=== PATIENT | male | born 1960 | race Caucasian/White ===

== ENCOUNTER 2017-09-08 09:01 | Emergency (ER) | payer MEDICAID ==
[~2017-09-08] VITALS: Ht 167.6 cm; Wt 62.1 kg
[2017-09-08 10:02] LABS: microscopic required? NO
[2017-09-08 10:18] LABS: BASOPHIL % 0.4 % (0-2); PLATELET COUNT 264 x10^3mcL (130-400); RED CELL DISTRIBUTION WIDTH 13.4 % (11.5-14.5)
[2017-09-08 10:19] LABS: urine erythrocyte NEGATIVE (NEGATIVE)
[2017-09-08 10:36] LABS: ALBUMIN 3.8 g/dL (3.4-5.0); ALKALINE PHOSPHATASE 50 U/L (46-116); ALT/SGPT 44 U/L (16-63); AMYLASE 52 U/L (25-115); AST/SGOT 23 U/L (15-37); BILIRUBIN TOTAL 0.5 mg/dL (0.20-1.00); CALCIUM 8.5 mg/dL (8.5-10.1); CARBON DIOXIDE 33.4 mmol/L (21-32); CHLORIDE SERUM 102 mmol/L (98-107); CREATININE SERUM 0.9 mg/dL (0.7-1.3); GFR1 > 60 mL/min; GLUCOSE SERUM 117 mg/dL (74-106); LIPASE 186 IU/L (73-393); POTASSIUM SERUM 5.5 mmol/L (3.5-5.1); SODIUM SERUM 135 mmol/L (136-145); TOTAL PROTEIN, SERUM 7.5 g/dL (6.4-8.2)
[2017-09-08 13:18] VITALS: BP 112/75
== END 2017-09-08 13:00 | disposition home or self-care (01) ==
LOC: ED 09:01
PROVIDERS: Emergency Medicine
DX: K57.30 Diverticulosis of large intestine without perforation or abscess without bleeding (principal); E11.9 Type 2 diabetes mellitus without complications; I10 Essential (primary) hypertension; E78.00 Pure hypercholesterolemia, unspecified; E66.01 Morbid (severe) obesity due to excess calories
CPT/HCPCS: 83880; J1885; J7030; Q0092

== ENCOUNTER 2017-09-18 13:05 | Emergency (ER) | payer MEDICAID ==
[~2017-09-18] VITALS: Ht 165.1 cm; Wt 106.1 kg
[2017-09-18 13:14] VITALS: Ht 165.1 cm; Wt 106.1 kg
[2017-09-18 15:15] VITALS: BP 128/65
== END 2017-09-18 15:15 | disposition home or self-care (01) ==
LOC: ED 13:05
DX: M54.5 Low back pain (principal); I10 Essential (primary) hypertension; E11.9 Type 2 diabetes mellitus without complications
CPT/HCPCS: J1885

== ENCOUNTER 2017-09-29 22:50 | Emergency (ER) | payer MEDICAID ==
[~2017-09-29] VITALS: Ht 170.2 cm; Wt 106.1 kg
[2017-09-29 23:13] VITALS: Ht 170.2 cm; Wt 106.1 kg
[2017-09-30 04:31] VITALS: BP 145/84
== END 2017-09-30 04:31 | disposition home or self-care (01) ==
LOC: ED 22:50
DX: G89.29 Other chronic pain (principal); M54.5 Low back pain; E11.9 Type 2 diabetes mellitus without complications; I10 Essential (primary) hypertension
CPT/HCPCS: J2270

== ENCOUNTER 2018-02-01 08:31 | Emergency (ER) | payer MEDICAID ==
[~2018-02-01] VITALS: Ht 172.7 cm; Wt 108.1 kg
[2018-02-01 11:04] LABS: microscopic required? NO
[2018-02-01 11:06] LABS: BASOPHIL % 0.5 % (0-2); PLATELET COUNT 232 x10^3mcL (130-400)
[2018-02-01 11:16] LABS: urine erythrocyte NEGATIVE (NEGATIVE)
[2018-02-01 11:17] LABS: CALCIUM 8.2 mg/dL (8.5-10.1); CARBON DIOXIDE 28.4 mmol/L (21-32); CHLORIDE SERUM 103 mmol/L (98-107); CREATININE SERUM 0.9 mg/dL (0.7-1.3); GFR1 > 60 mL/min; GLUCOSE SERUM 119 mg/dL (74-106); POTASSIUM SERUM 4.3 mmol/L (3.5-5.1); SODIUM SERUM 136 mmol/L (136-145)
[2018-02-01 11:21] LABS: ALBUMIN 3.8 g/dL (3.4-5.0); ALKALINE PHOSPHATASE 60 U/L (46-116); ALT/SGPT 44 U/L (16-63); AST/SGOT 23 U/L (15-37); BILIRUBIN TOTAL 0.51 mg/dL (0.20-1.00); TOTAL PROTEIN, SERUM 7.6 g/dL (6.4-8.2)
[2018-02-01 12:00] VITALS: BP 122/61
== END 2018-02-01 12:00 | disposition home or self-care (01) ==
LOC: ED 08:31
PROVIDERS: Emergency Medicine
DX: R33.9 Retention of urine, unspecified (principal); I10 Essential (primary) hypertension; E11.9 Type 2 diabetes mellitus without complications
CPT/HCPCS: 36415

== ENCOUNTER 2019-04-06 16:49 | Emergency (ER) | payer OTHER ==
[~2019-04-06] VITALS: Ht 170.2 cm; Wt 109.3 kg
[2019-04-06 16:57] VITALS: Ht 170.2 cm; Wt 109.3 kg
[2019-04-06 18:55] VITALS: BP 127/90
== END 2019-04-06 18:55 | disposition home or self-care (01) ==
LOC: ED 16:49
DX: S50.02XA Contusion of left elbow, initial encounter (principal); I10 Essential (primary) hypertension; E11.9 Type 2 diabetes mellitus without complications; W11.XXXA Fall on and from ladder, initial encounter; Y93.89 Activity, other specified; Y92.89 Other specified places as the place of occurrence of the external cause; Y99.8 Other external cause status

== ENCOUNTER 2019-04-10 08:50 | Emergency (ER) | payer OTHER ==
[~2019-04-10] VITALS: Ht 167.6 cm; Wt 109.3 kg
[2019-04-10 09:26] VITALS: Ht 167.6 cm; Wt 109.3 kg
[2019-04-10 10:57] VITALS: BP 140/89
== END 2019-04-10 10:57 | disposition home or self-care (01) ==
LOC: ED 08:50
DX: M25.522 Pain in left elbow (principal); R22.32 Localized swelling, mass and lump, left upper limb; I10 Essential (primary) hypertension; E11.9 Type 2 diabetes mellitus without complications; W11.XXXA Fall on and from ladder, initial encounter; Y93.89 Activity, other specified; Y92.89 Other specified places as the place of occurrence of the external cause; Y99.8 Other external cause status

== ENCOUNTER 2019-06-01 09:19 | Emergency (ER) | payer OTHER ==
[~2019-06-01] VITALS: Ht 165.1 cm; Wt 109.8 kg
[2019-06-01 10:15] VITALS: Ht 165.1 cm; Wt 109.8 kg
[2019-06-01 14:21] VITALS: BP 128/89
== END 2019-06-01 14:21 | disposition home or self-care (01) ==
LOC: ED 09:19
DX: S53.402A Unspecified sprain of left elbow, initial encounter (principal); I10 Essential (primary) hypertension; E11.9 Type 2 diabetes mellitus without complications; W11.XXXA Fall on and from ladder, initial encounter; Y93.89 Activity, other specified; Y92.89 Other specified places as the place of occurrence of the external cause; Y99.8 Other external cause status

== ENCOUNTER 2019-06-23 14:02 | Inpatient (IN) | payer OTHER ==
[~2019-06-23] VITALS: Ht 165.1 cm; Wt 112.0 kg
[2019-06-23 14:08] VITALS: Ht 165.1 cm; Wt 112.0 kg
--- NOTE | 2019-06-23 14:49 | NUR ---
PT A/O X4. RESP E/U. PT CC: CP X4 DAY. SOB SINCE TODAY. STATES IT DOES NOT RADIATE. DENIES N/V. AT BEDSIDE. 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 ALL NEEDS MET AT THIS TIME.
[2019-06-23 15:16] LABS: BASOPHIL % 0.6 % (0-2); PLATELET COUNT 236 x10^3mcL (130-400); RED CELL DISTRIBUTION WIDTH 12.4 % (11.5-14.5)
[2019-06-23 15:38] LABS: CALCIUM 8.4 mg/dL (8.5-10.1); CARBON DIOXIDE 28.5 mmol/L (21-32); CHLORIDE SERUM 103 mmol/L (98-107); CREATININE SERUM 0.8 mg/dL (0.7-1.3); GFR1 > 60 mL/min; GLUCOSE SERUM 154 mg/dL (74-106); POTASSIUM SERUM 4.4 mmol/L (3.5-5.1); SODIUM SERUM 139 mmol/L (136-145)
[2019-06-23 15:43] LABS: ALBUMIN 4.1 g/dL (3.4-5.0); ALKALINE PHOSPHATASE 56 U/L (46-116); ALT/SGPT 49 U/L (16-63); AST/SGOT 20 U/L (15-37); BILIRUBIN TOTAL 0.2 mg/dL (0.20-1.00); TOTAL PROTEIN, SERUM 7.5 g/dL (6.4-8.2)
--- NOTE | 2019-06-23 15:44 | NUR ---
PT RESTING IN BED. C/O BACK PAIN 12/31. MEDICATED C MORPHINE 4MG IVP. TOLERATED WELL. WILL CONT TO MONITOR.
--- NOTE | 2019-06-23 16:21 | NUR ---
PT RESTING IN BED COMFORTABLY C AT BEDSIDE. STATES NO MORE CP AND FEELS MUCH BETTER. ALL NEEDS MET AT THIS TIME. WILL CONT TO MONITOR.
[2019-06-23] MEDS ORDERED: FORTAMET500 M1 PO (17:45)
[2019-06-23] MEDS ORDERED: COZAAR50 M1 PO (17:45)
[2019-06-23] MEDS ORDERED: TAMSULOSIN HCL0.4 MG PO (17:45)
[2019-06-23] MEDS ORDERED: SIMVASTATIN5 M2 PO ×2 (17:45→17:46)
--- NOTE | 2019-06-23 17:47 | NUR ---
PT SITTING COMFORTABLY IN GURNEY, AWAKE AND ALERT, MAKING JOKES, RESP E/U, DENIES PAIN. SPOUSE AT BEDSIDE. NAD NOTED.
--- NOTE | 2019-06-23 19:25 | NUR ---
ATTEMPTED TO CALL REPORT TO MED SURG, UNABLE TO TAKE REPORT AT THIS TIME.
--- NOTE | 2019-06-23 19:41 | NUR ---
PT REPORT CALLED TO RADHA POE TO ASSUME PT CARE.
--- NOTE | 2019-06-23 19:48 | NUR ---
PT TRANSFERRED TO [facility] BY [facility] BY MYSELF AND [facility] EMT. PT ON FULL CM FOR TRANSPORT. PT AOX4, RESP EVEN AND UNLABORED, NO ACUTE DISTRESS NOTED. PT ACCEPTED BY JUN POE TO ASSUME PT CARE. PT AMBULATED FROM [facility] TO BED WITHOUT INCIDENT.
[2019-06-23 20:01] VITALS: BP 144/91
--- NOTE | 2019-06-23 20:16 | NUR ---
RECEIVED PT FROM ER. PT ADMIT FOR CHEST PAIN, PT IS A/O X4, VERBAL RESPONSIVE. LUNG SOUND CLEAR BILATERAL,NO COUGH, NO SOB. PT IS ON TELE 5, NSR, DENY ANY CHEST PAIN OR DISCOMFORT, BOWEL SOUND PRESENT ALL 4 QUADRANTS, NO DISTENTION, NO TENDER. PEDAL PULSE PRESENT BOTH FEET, NO EDEMA, IV AT LAC. ALL ADLS ASSIST, ALL NEED MET, CALL LIGHT IN REACH, WILL CONTINUE TO MONITOR.
--- NOTE | 2019-06-24 01:40 | NUR ---
Pt. resting at this time. Denies pain. No respiratory distress. Will cont.to monitor.
--- NOTE | 2019-06-24 04:03 | NUR ---
Afebrile. No significant change in condition noted. Denies chest pain or discomfort. In no apparent distress.
[2019-06-24 05:15] VITALS: BP 126/79
[2019-06-24 07:05] LABS: BASOPHIL % 0.4 % (0-2); PLATELET COUNT 221 x10^3mcL (130-400); RED CELL DISTRIBUTION WIDTH 12.6 % (11.5-14.5)
[2019-06-24 07:30] LABS: CHOLESTEROL/HDL RATIO 5.1
--- NOTE | 2019-06-24 07:30 | NUR ---
RECEIVED PT IN BED. ASSESSED AND DOCUMENTED. DENIES CHEST PAIN. STABLE. AT BEDSIDE. SAFTEY PRECAUTIONS ARE IN PLACE. WILL MONITOR.
[2019-06-24 07:39] LABS: CARBON DIOXIDE 26.5 mmol/L (21-32); CHLORIDE SERUM 101 mmol/L (98-107); GLUCOSE SERUM 130 mg/dL (74-106); POTASSIUM SERUM 4.2 mmol/L (3.5-5.1); SODIUM SERUM 135 mmol/L (136-145)
[2019-06-24 07:40] LABS: CALCIUM 8.3 mg/dL (8.5-10.1); CREATININE SERUM 0.6 mg/dL (0.7-1.3); GFR1 > 60 mL/min; MAGNESIUM 2.2 mg/dL (1.8-2.4); PHOSPHOROUS 3.9 mg/dL (2.5-4.9)
[2019-06-24 08:40] VITALS: BP 123/72
[2019-06-24] MEDS ORDERED: OMEPRAZOLE MAGN20 M1 PO (10:13)
--- NOTE | 2019-06-24 10:15 | NUR ---
PT REMAINS STABLE, SB WITH HR 58, INFORMED ABOUT THAT. SHE SAID PT IS STABLE. SHE WILL DISCHARGE HIM TODAY. DENIES CHEST PAIN, NO DIZZINESS.
--- NOTE | 2019-06-24 11:33 | NUR ---
ECHOCARDIOGRAM COMPLETED.
[2019-06-24 11:43] VITALS: BP 123/72
--- NOTE | 2019-06-24 13:05 | NUR ---
DISCHARGE INSTRUCTIONS GIVEN, PRESCRIPTION SENT TO PT'S PHARMACY BY DOCTOR. PT DENIES ANY PAIN, NO DIZZINESS, NO DISTRESS NOTED, HR 68 THIS TIME. PB AND DC PAPER SIGNED, PB SENT WITH PT. OFFERED WHEELCHAIR BUT PT SAID HE WANT TO WALK. PT SAID HE DROVE TO THE HOSPITAL AND HE WILL DRIVE BACK HOME. PT IS STABLE, PT SAID HE FEEL VERY GOOD. ACCOUNTING RECRUITER WALK WITH PT TO [facility]. DC HOME.
== END 2019-06-24 13:20 | disposition home or self-care (01) | DRG 198 ==
LOC: ED 14:02 → DU 17:22
PROVIDERS: Emergency Medicine; ADMIT Family Medicine
DX: I25.119 Atherosclerotic heart disease of native coronary artery with unspecified angina pectoris (principal); E11.65 Type 2 diabetes mellitus with hyperglycemia; I11.9 Hypertensive heart disease without heart failure; E78.5 Hyperlipidemia, unspecified; N40.0 Benign prostatic hyperplasia without lower urinary tract symptoms; Z79.84 Long term (current) use of oral hypoglycemic drugs; Z68.39 Body mass index [BMI] 39.0-39.9, adult
CPT/HCPCS: 82962; 90732; G0378; Q0092

== ENCOUNTER 2019-10-10 10:20 | Emergency (ER) | payer OTHER ==
[~2019-10-10] VITALS: Ht 172.7 cm; Wt 112.0 kg
[~2019-10-10 10:20] MED LIST: COZAAR50 M1 PO; FORTAMET500 M1 PO; OMEPRAZOLE MAGN20 M1 PO; SIMVASTATIN5 M2 PO; TAMSULOSIN HCL0.4 MG PO
[2019-10-10 10:25] VITALS: Ht 172.7 cm; Wt 112.0 kg
[2019-10-10 11:00] VITALS: BP 155/92
== END 2019-10-10 11:00 | disposition home or self-care (01) ==
LOC: ED 10:20
DX: L05.91 Pilonidal cyst without abscess (principal); I10 Essential (primary) hypertension; E11.9 Type 2 diabetes mellitus without complications; E78.00 Pure hypercholesterolemia, unspecified

== ENCOUNTER 2019-12-30 16:01 | Emergency (ER) | payer OTHER ==
[~2019-12-30] VITALS: Ht 162.6 cm; Wt 111.6 kg
[2019-12-30 16:21] VITALS: Ht 162.6 cm; Wt 111.6 kg
[2019-12-30 18:08] LABS: BASOPHIL % 0.1 % (0-2); PLATELET COUNT 242 x10^3mcL (130-400); RED CELL DISTRIBUTION WIDTH 13.3 % (11.5-14.5)
[2019-12-30 18:30] LABS: CALCIUM 8.6 mg/dL (8.5-10.1); CARBON DIOXIDE 28.2 mmol/L (21-32); CHLORIDE SERUM 101 mmol/L (98-107); CREATININE SERUM 0.8 mg/dL (0.7-1.3); GFR1 > 60 mL/min; GLUCOSE SERUM 107 mg/dL (74-106); POTASSIUM SERUM 4.1 mmol/L (3.5-5.1); SODIUM SERUM 139 mmol/L (136-145)
[2019-12-30 18:34] LABS: ALBUMIN 4.1 g/dL (3.4-5.0); ALKALINE PHOSPHATASE 56 U/L (46-116); ALT/SGPT 67 U/L (16-63); AST/SGOT 37 U/L (15-37); BILIRUBIN TOTAL 0.3 mg/dL (0.20-1.00); LIPASE 127 IU/L (73-393); TOTAL PROTEIN, SERUM 7.9 g/dL (6.4-8.2)
[2019-12-30 19:55] VITALS: BP 149/88
== END 2019-12-30 19:55 | disposition home or self-care (01) ==
LOC: ED 16:01
DX: K29.00 Acute gastritis without bleeding (principal); I10 Essential (primary) hypertension; E11.9 Type 2 diabetes mellitus without complications; E78.00 Pure hypercholesterolemia, unspecified
CPT/HCPCS: J2270; J2405; J7030; Q0092

== ENCOUNTER 2020-06-04 15:27 | Emergency (ER) | payer OTHER ==
[~2020-06-04] VITALS: Ht 175.3 cm; Wt 102.1 kg
[2020-06-04 15:28] VITALS: BP 118/79; Ht 175.3 cm; Wt 102.1 kg
== END 2020-06-04 16:23 | disposition home or self-care (01) ==
LOC: ED 15:27
DX: J18.9 Pneumonia, unspecified organism (principal); I10 Essential (primary) hypertension; E11.9 Type 2 diabetes mellitus without complications; E78.00 Pure hypercholesterolemia, unspecified; Z20.828 Contact with and (suspected) exposure to other viral communicable diseases

== ENCOUNTER 2020-07-18 12:15 | Observation (INO) | payer OTHER ==
[~2020-07-18] VITALS: Ht 172.7 cm; Wt 108.9 kg
[2020-07-18 13:21] LABS: BASOPHIL % 0.9 % (0.2-1.5); PLATELET COUNT 236 x10^3mcL (152-348); RED CELL DISTRIBUTION WIDTH 13.4 % (12.1-16.2)
[2020-07-18 13:34] LABS: CALCIUM 8.8 mg/dL (8.5-10.1); CARBON DIOXIDE 26.9 mmol/L (21-32); CHLORIDE SERUM 101 mmol/L (98-107); CREATININE SERUM 0.7 mg/dL (0.7-1.3); GFR1 > 60 mL/min; GLUCOSE SERUM 153 mg/dL (74-106); POTASSIUM SERUM 3.7 mmol/L (3.5-5.1); SODIUM SERUM 136 mmol/L (136-145)
[2020-07-18 13:38] LABS: ALBUMIN 3.8 g/dL (3.4-5.0); ALKALINE PHOSPHATASE 54 U/L (46-116); ALT/SGPT 42 U/L (16-63); AST/SGOT 21 U/L (15-37); BILIRUBIN TOTAL 0.3 mg/dL (0.20-1.00); TOTAL PROTEIN, SERUM 7.4 g/dL (6.4-8.2)
[2020-07-18] MEDS ORDERED: GLIPIZIDE XL5 M2 PO (15:18)
[2020-07-18] MEDS ORDERED: ASPIRIN FOR CHI81 M1 PO (15:19)
[2020-07-18 16:46] VITALS: BP 134/89
[2020-07-18 16:54] VITALS: BP 134/89
[2020-07-18 20:28] VITALS: BP 133/82
[2020-07-19 05:00] VITALS: BP 129/75
[2020-07-19 06:48] LABS: BASOPHIL % 0.6 % (0.2-1.5); PLATELET COUNT 229 x10^3mcL (152-348); RED CELL DISTRIBUTION WIDTH 13.8 % (12.1-16.2)
[2020-07-19 08:11] LABS: CALCIUM 8.8 mg/dL (8.5-10.1); CHLORIDE SERUM 102 mmol/L (98-107); CHOLESTEROL 177 mg/dL (<200); CHOLESTEROL/HDL RATIO 4.8; CREATININE SERUM 0.8 mg/dL (0.7-1.3); GFR1 > 60 mL/min; GLUCOSE SERUM 119 mg/dL (74-106); HDL CHOLESTEROL 37 mg/dL (40-60); MAGNESIUM 2.1 mg/dL (1.8-2.4); POTASSIUM SERUM 4.2 mmol/L (3.5-5.1); SODIUM SERUM 136 mmol/L (136-145); TRIGLYCERIDES 130 mg/dL (<150)
[2020-07-19 08:55] VITALS: BP 138/93
[2020-07-19 15:00] VITALS: BP 138/93
== END 2020-07-19 15:16 | disposition home or self-care (01) ==
LOC: ED 12:15 → DU 14:32
PROVIDERS: Emergency Medicine; ADMIT Hospitalist; ATTEND Hospitalist
DX: R07.89 Other chest pain (principal); I10 Essential (primary) hypertension; E78.5 Hyperlipidemia, unspecified; E11.9 Type 2 diabetes mellitus without complications; N40.0 Benign prostatic hyperplasia without lower urinary tract symptoms; E78.00 Pure hypercholesterolemia, unspecified; Z20.822 Contact with and (suspected) exposure to COVID-19
CPT/HCPCS: 83880; 85378; G0378; J1644